=== PATIENT | female | born 1935 | race Caucasian/White ===

== ENCOUNTER → 2018-04-08 15:10 | Outpatient (CLI) | payer MEDICARE, MEDICAID, SELFPAY ==
--- NOTE | 2018-04-08 15:13 | MR_ITS ---
MR head/brain wo con HISTORY: Syncope and collapse with blurred vision ITS.REASON: SYNCOPE AND COLLAPSE ORDERING PHYSICIAN: Cameron De Anda MD PATIENT AGE: 83 years Comparison: None TECHNIQUE: Standard multiplanar multiecho sequences are performed without contrast. FINDINGS: No midline shift, mass effect, intracranial hemorrhage, or hydrocephalus. There are numerous periventricular and subcortical T2 white matter hyperintensities. 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 No evidence of acute infarction. The cerebellopontine angle, cerebellum, and brainstem are unremarkable. The pituitary and optic chiasm have an unremarkable appearance. No mastoid effusion or sinus air-fluid level. IMPRESSION: 1. No acute intracranial findings. 2. 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 Migraine headache could cause a similar appearance. Demyelinating process is also included in the differential diagnosis.
== END ==
PROVIDERS: Visit Provider Internal Medicine Adolescent Medicine
DX: R55 Syncope and collapse (principal)
CPT/HCPCS: 70551